=== PATIENT | female | born 1985 | race Caucasian/White ===

== ENCOUNTER 2024-03-03 20:25 | Emergency (ER) | payer BC, SELFPAY ==
[2024-03-03 20:31] VITALS: BP 138/76
[2024-03-03 21:20] VITALS: BP 131/85
[2024-03-03 21:21] VITALS: BMI 24.1
--- NOTE | 2024-03-03 22:26 | ED.SKININJ ---
HPI-Injury
<JEAN Mathias - Last Filed: 03/04/24 05:52>
General
Chief Complaint: Skin Surface Trauma
Source: patient
Time Seen by Provider: 03/03/24 22:00
Nursing documentation reviewed up to this point in time: agreed with except (Laceration to left fifth palmar PIP joint, laceration to third palmar PIP joint)
History of Present Illness-Injury
Is this injury a work related problem?: No
Initial Injury comments:
A 38-year-old female presents to the emergency department for a skin laceration on her left fifth palmar PIP joint, and her left third palmar PIP joint. She states that earlier this evening she was carving pumpkins at her house when the knife
slipped and she cut diagonally across her left hand. She states that she immediately began to clean both wounds with soap and water when her insisted that she go to the emergency room. She denies finger paresthesias, pale mass,
poikilothermia, paralysis of lacerated fingers.
Last tetanus shot was 2021.
Skin Exam
<JEAN Mathias - Last Filed: 03/04/24 05:52>
Laceration
Left Middle Palmar Fifth Finger:
Length in cm: 1
Orientation: horizontal
Type of Laceration: simple
Any active bleeding?: no active bleeding
Distal skin color and temperature: normal-warm & good color
Normal distal neurovascular exam: Yes
Range of motion: limited (Minimal flexion and extension due to pain)
Left Middle Palmar Third Finger:
Length in cm: 1
Orientation: diagonal
Type of Laceration: simple
Any active bleeding?: no active bleeding
Distal skin color and temperature: normal-warm & good color
Normal distal neurovascular exam: Yes
Range of motion: full
Phy Exam
<JEAN Mathias - Last Filed: 03/04/24 05:52>
General Physical Exam
General Presentation: well appearing and no apparent distress
General Skin: warm and dry
General Habitus: normal
General Mental: alert
General Hydration: appears well hydrated
Eye Exam
Eye Exam: PERRL
Musculoskeletal Exam
Musculoskeletal Exam: neuro vasc intact
Skin Exam
Skin Exam: normal color and warm/dry
Course
<JEAN Mathias - Last Filed: 03/04/24 05:52>
Vital Signs
Initial and Last Documented VS:
Initial Vital Signs
Temp Pulse Resp BP Pulse Ox
98.2 F 88 18 138/76 98
03/03/24 20:31 03/03/24 20:31 03/03/24 20:31 03/03/24 20:31 03/03/24 20:31
Last Documented Vital Signs
Temp Pulse Resp BP Pulse Ox
98.2 F 88 18 131/85 99
03/03/24 20:31 03/03/24 20:31 03/03/24 20:31 03/03/24 21:20 03/03/24 21:21
<Renny Mazariegos DO - Last Filed: 03/03/24 22:42>
Vital Signs
Initial and Last Documented VS:
Initial Vital Signs
Temp Pulse Resp BP Pulse Ox
98.2 F 88 18 138/76 98
03/03/24 20:31 03/03/24 20:31 03/03/24 20:31 03/03/24 20:31 03/03/24 20:31
Last Documented Vital Signs
Temp Pulse Resp BP Pulse Ox
98.2 F 88 18 131/85 99
03/03/24 20:31 03/03/24 20:31 03/03/24 20:31 03/03/24 21:20 03/03/24 21:21
Procedures
<JEAN Mathias - Last Filed: 03/04/24 05:52>
Laceration Closure
Left Middle Plantar Finger:
Status of Wound: clean
Size of Wound in cm: 1
Description of Wound Edges: sharp
Preparation: cleaned with soap & water
Revision/Debridement: routine- no revision
Wound exploration: no tendon involvement
Type of Closure: Dermabond-skin glue
Additional information:
Left fifth palmar PIP joint laceration
Left Middle Palmar Third Finger:
Status of Wound: clean
Description of Wound Edges: sharp
Preparation: cleaned with soap & water
Revision/Debridement: routine- no revision
Additional information:
Superficial laceration, edges were well-approximated without intervention, no Dermabond glue, or sutures were used to close laceration. Band-Aid was applied
<JEAN Mathias - Last Filed: 03/04/24 05:52>
MDM/Problems Addressed
Differential Diagnosis Includes:
Skin surface laceration, tendon rupture,
<Renny Mazariegos DO - Last Filed: 03/03/24 22:42>
*Pulse Oximetry
Patient hypoxic: no
*Critical Care Note
Total Time (30-74mins, 75-104mins- exclusive of procedures): Not Applicable
ED Attending Note
<JEAN Mathias - Last Filed: 03/04/24 05:52>
-
Portions of this chart may have been created with voice recognition software.� Occasional wrong word or��sound alike� substitutions may have occurred due to the inherent limitations of voice recognition software.
<Renny Mazariegos DO - Last Filed: 03/03/24 22:42>
ED Attending Note
Patient seen and examined by attending physician: Yes
I performed the substantive portion of visit, reviewed & personally made and approve the management plan that is documented in note by myself or BROCK.: Yes
ED Attending Note:
Pleasant 38-year-old female presents with very superficial lacerations to the right fifth digit on the palmar side. Last tetanus shot was 2021. Denies any other injuries. Patient was seen in conjunction with the PA student. I have reviewed and
agree with the history and treatment plan presented. On my independent physical exam, patient is awake, alert, and oriented x3, no acute distress. 1 cm superficial laceration to the palmar side of the fifth digit on the right side. Wound was
approximated with Dermabond. Patient tolerated procedure well with no immediate adverse effects.
Discharge Plan
Departure
Patient Disposition: Home (Routine Discharge)
Date of Disposition: 03/03/24
Time of Disposition: 22:39
Patient with high blood pressure during this ER visit?: Yes
Condition: Good
Discharge Problem:
Superficial laceration of finger
Instructions: Laceration Repair With Glue (DC), Wound Care (DC), BLOOD PRESSURE
Referrals:
[facility] [Outside]
[facility] [Outside]
Activity Restrictions/Additional Instructions:
It was a pleasure meeting you and taking part in your care. We hope for your continued healing and wellness.
Please read discharge instructions in their entirety. However, they are for general education and may not describe your exact diagnosis at discharge. Information on your ER visit and medical conditions were discussed with you along with appropriate
follow up information...
If indicated, please take your medications as instructed and indicated on discharge paperwork.
Please schedule a follow up appointment as directed. Call to schedule an appointment
Please return to the emergency department with ANY change in, persisting, or worsening of symptoms. If any of your symptoms do not improve, or persist, or become more severe within 6-12 hours, please return to the emergency department for further
care.
Please return to the emergency department if you develop a headache, neck pain/stiffness, fever greater than 100.4F, chest pain, shortness of breath, persistent nausea, vomiting, slurred speech, difficulty walking, numbness/tingling, weakness, signs
of infection or any other symptoms that are worrisome to you.
If you have any questions or concerns please do not hesitate to call the Hospital at or E-mail me directly at [email or web address]
Interventions
Interventions:
*Risk Screen - Suicide Last Done: 03/03/24 20:32
*General Assessment Last Done: 03/03/24 20:32
*Neglect/Abuse Screening Last Done: 03/03/24 20:32
ED- Fall Risk Assessment Last Done: 03/03/24 21:21
*ED COVID-19 Vaccine History Last Done: 03/03/24 20:32
*Nursing Disposition Last Done: 03/03/24 22:46
ED-Skin Assessment Last Done: 03/03/24 21:21
Discharge Date and Time
Discharge Date/Time: 03/03/24 22:53
Print Language: BOLIVIAN
== END 2024-03-03 22:53 | disposition home or self-care (01) ==
LOC: EMR 20:25
PROVIDERS: EMERGENCY PHYSICIAN Student in an Organized Health Care Education/Training Program; FAMILY PHYSICIAN Nurse Practitioner Family
DX: S61.217A Laceration without foreign body of left little finger without damage to nail, initial encounter (principal); S61.213A Laceration without foreign body of left middle finger without damage to nail, initial encounter; W26.0XXA Contact with knife, initial encounter
CPT/HCPCS: 99282; 12001

== ENCOUNTER 2024-03-30 16:58 | Outpatient (RCR) | payer BC, SELFPAY | END 2024-03-30 23:59 | disposition home or self-care (01) | LOC: ROT 16:58 | PROVIDERS: ATTENDING PHYSICIAN Radiology Diagnostic Radiology; FAMILY PHYSICIAN Nurse Practitioner Family | DX: Z47.89 Encounter for other orthopedic aftercare (principal); S66.106D Unspecified injury of flexor muscle, fascia and tendon of right little finger at wrist and hand level, subsequent encounter; Z73.6 Limitation of activities due to disability | CPT/HCPCS: 97010; 97110; 97140; 97166; 97535; 97760; 97763 ==

== ENCOUNTER 2024-05-03 14:03 | Outpatient (RCR) | payer BC, SELFPAY | END 2024-05-03 23:59 | disposition home or self-care (01) | LOC: ROT 14:03 | PROVIDERS: ATTENDING PHYSICIAN Radiology Diagnostic Radiology; FAMILY PHYSICIAN Nurse Practitioner Family | DX: S66.106D Unspecified injury of flexor muscle, fascia and tendon of right little finger at wrist and hand level, subsequent encounter (principal); Z47.89 Encounter for other orthopedic aftercare; Z73.6 Limitation of activities due to disability | CPT/HCPCS: 97010; 97018; 97035; 97110; 97140; 97535; 97760; 97763 ==

== ENCOUNTER → 2024-05-11 11:04 | Outpatient (REF) | payer BC, SELFPAY ==
[2024-05-13 17:00] LABS: Quantiferon Mitogen minus NIL 9.95 IU/mL; Quantiferon NIL 0.05 IU/mL; Quantiferon TB Gold Plus Negative (Negative)
== END ==
LOC: REG 11:04
PROVIDERS: ATTENDING PHYSICIAN Nurse Practitioner Adult Health
DX: R76.12 Nonspecific reaction to cell mediated immunity measurement of gamma interferon antigen response without active tuberculosis (principal); Z11.1 Encounter for screening for respiratory tuberculosis
CPT/HCPCS: 36415; 86480

== ENCOUNTER 2024-06-01 09:17 | Outpatient (RCR) | payer BC, SELFPAY | END 2024-06-01 23:59 | disposition home or self-care (01) | LOC: ROT 09:17 | PROVIDERS: ATTENDING PHYSICIAN Radiology Diagnostic Radiology; FAMILY PHYSICIAN Nurse Practitioner Family | DX: S66.106D Unspecified injury of flexor muscle, fascia and tendon of right little finger at wrist and hand level, subsequent encounter (principal); Z47.89 Encounter for other orthopedic aftercare; Z73.6 Limitation of activities due to disability | CPT/HCPCS: 97018; 97035; 97110; 97140; 97535; 97760 ==

== ENCOUNTER 2024-06-20 14:06 | Outpatient (RCR) | payer BC, SELFPAY | END 2024-06-20 23:59 | disposition home or self-care (01) | LOC: ROT 14:06 | PROVIDERS: ATTENDING PHYSICIAN Radiology Diagnostic Radiology; FAMILY PHYSICIAN Nurse Practitioner Family | DX: S66.106D Unspecified injury of flexor muscle, fascia and tendon of right little finger at wrist and hand level, subsequent encounter (principal); Z73.6 Limitation of activities due to disability; Z47.89 Encounter for other orthopedic aftercare | CPT/HCPCS: 97018; 97110; 97140 ==

== ENCOUNTER → 2024-10-17 14:56 | Outpatient (REF) | payer BC, SELFPAY | LOC: DHSLP 14:56 | PROVIDERS: ATTENDING PHYSICIAN Internal Medicine Critical Care Medicine; FAMILY PHYSICIAN Family Medicine | DX: G47.19 Other hypersomnia (principal); G47.8 Other sleep disorders; R06.83 Snoring | CPT/HCPCS: 95800 ==